=== PATIENT | male | born 1990 | race Two or more races ===

== ENCOUNTER → 2022-06-24 | Emergency (ER) | payer SELFPAY | END | disposition left against medical advice (07) | LOC: ER 17:25 | DX: M79.605 Pain in left leg (principal); M79.604 Pain in right leg; Z53.21 Procedure and treatment not carried out due to patient leaving prior to being seen by health care provider ==

== ENCOUNTER 2023-04-10 12:28 | Emergency (ER) | payer MEDICAID, OTHER ==
[~2023-04-10] VITALS: Ht 185.4 cm; Wt 118.0 kg
[2023-04-10] MEDS ORDERED: KETOROLAC TROMETH 60MG/2ML VIAL IM ONE (14:45)
[2023-04-10 16:17] VITALS: BP 125/70; PULSE 86; RESP 18; TEMP 98.4; O2SAT 98
== END 2023-04-10 16:19 ==
LOC: ER 12:28 → EEVIPCON 12:28 → ER 16:19
DX: S16.1XXA Strain of muscle, fascia and tendon at neck level, initial encounter (principal); S00.81XA Abrasion of other part of head, initial encounter; Z88.6 Allergy status to analgesic agent; X58.XXXA Exposure to other specified factors, initial encounter; Y93.89 Activity, other specified; Y92.89 Other specified places as the place of occurrence of the external cause; Y99.8 Other external cause status
CPT/HCPCS: 70450; 72125; 96372; 99285; J1885